=== PATIENT | male | born 2000 | race African-American/Black ===

== ENCOUNTER 2024-09-03 08:30 | Emergency (ER) | payer SELFPAY ==
[~2024-09-03] VITALS: Ht 170.2 cm; Wt 70.5 kg
[2024-09-03 08:34] VITALS: BP 129/84; PULSE 80; RESP 20; TEMP 98.2; O2SAT 99
[2024-09-03] MEDS: IBUPROFEN 600 MG TABLET PO ONE (09:53)
[2024-09-03] MEDS: HYDROCODONE/ACETAMINOPHEN 5-325 MG TABLET PO ONE (09:54)
[2024-09-03] MEDS ORDERED: HYDR-4062 PO (11:05)
[2024-09-03] MEDS ORDERED: IBUP-1554 PO (11:05)
== END 2024-09-03 11:19 | disposition home or self-care (01) ==
LOC: EMS 08:36
DX: S82.54XA Nondisplaced fracture of medial malleolus of right tibia, initial encounter for closed fracture (principal); S32.82XA Multiple fractures of pelvis without disruption of pelvic ring, initial encounter for closed fracture; S92.402A Displaced unspecified fracture of left great toe, initial encounter for closed fracture; W19.XXXA Unspecified fall, initial encounter; Y93.89 Activity, other specified; Y92.89 Other specified places as the place of occurrence of the external cause; Y99.8 Other external cause status
CPT/HCPCS: 99283